=== PATIENT | female | born 1970 | race Two or more races ===

== ENCOUNTER 2020-03-25 14:25 | Outpatient (CLI) | payer OTHER ==
[2020-03-28] MEDS ORDERED: MULTI VITAMIN1 EACH PO (08:31)
[2020-03-28] MEDS ORDERED: MOTRIN IB200 MG PO (08:31)
[2020-04-01] MEDS ORDERED: IBUPROFEN800 MG PO (08:58)
[2020-04-03] MEDS ORDERED: NEURONTIN600 MG PO (06:58)
[2020-04-03] MEDS ORDERED: IBUPROFEN800 MG PO (06:58)
[2020-04-03] MEDS ORDERED: SIMETHICONE125 M1 PO (06:58)
[2020-04-03] MEDS ORDERED: POLY119PG PO (06:58)
== END 2020-03-25 14:40 | disposition home or self-care (01) ==
LOC: RAD 14:25
PROVIDERS: ATTEND Obstetrics & Gynecology
DX: Z01.811 Encounter for preprocedural respiratory examination (principal)

== ENCOUNTER → 2020-03-25 15:06 | Outpatient (CLI) | payer OTHER ==
[~2020-03-25 15:06] MED LIST: IBUPROFEN800 MG PO; MOTRIN IB200 MG PO; MULTI VITAMIN1 EACH PO; NEURONTIN600 MG PO; POLY119PG PO; SIMETHICONE125 M1 PO
== END | disposition home or self-care (01) ==
LOC: LAB 15:06
PROVIDERS: ATTEND Obstetrics & Gynecology
DX: Z01.810 Encounter for preprocedural cardiovascular examination (principal)

== ENCOUNTER 2020-04-01 05:49 | Inpatient (IN) | payer OTHER | END 2020-04-03 07:34 | disposition home or self-care (01) | DRG 743 | LOC: O/R 05:49 → OB/GYN 14:16 | PROVIDERS: ADMIT Obstetrics & Gynecology | PROC: 0UT90ZZ Resection of Uterus, Open Approach (ICD-10-PCS; principal; 2020-04-01) | DX: D25.1 Intramural leiomyoma of uterus (principal); D25.2 Subserosal leiomyoma of uterus; N72 Inflammatory disease of cervix uteri ==

== ENCOUNTER 2020-04-13 17:22 | Emergency (ER) | payer OTHER ==
[~2020-04-13] VITALS: Ht 152.4 cm; Wt 71.2 kg
== END 2020-04-13 20:41 | disposition home or self-care (01) ==
LOC: ER 17:22
DX: L29.8 Other pruritus (principal); Z98.890 Other specified postprocedural states

== ENCOUNTER 2021-04-09 12:53 | Emergency (ER) | payer OTHER ==
[~2021-04-09] VITALS: Ht 152.4 cm; Wt 70.8 kg
[2021-04-09] MEDS ORDERED: LEVSIN0.125 MG PO (18:21)
[2021-04-09] MEDS ORDERED: INTESTINEX680 M1 PO (18:21)
[2021-04-09] MEDS ORDERED: CIPRO500 MG PO (18:21)
[2021-04-09] MEDS ORDERED: PEPCID AC20 MG PO (18:21)
[2021-05-27] MEDS ORDERED: PROBIOTIC1 EAC2 (10:51)
== END 2021-04-09 18:27 | disposition home or self-care (01) ==
LOC: ER 12:53
DX: K52.9 Noninfective gastroenteritis and colitis, unspecified (principal); E86.0 Dehydration